=== PATIENT | male | born 1980 | race Caucasian/White ===

== ENCOUNTER 2017-02-22 10:34 | Emergency (ER) | payer OTHER ==
[2017-02-22 10:53] VITALS: TEMP 97.8
[2017-02-22] MEDS ORDERED: Emtricitabine-Tenofovir 200 mg-300 mg Tab PO STA (11:14)
[2017-02-22] MEDS ORDERED: cefTRIAXone (Rocephin) 250 mg Inj IM STA (11:15)
--- NOTE | 2017-02-22 11:20 | ED PDOC ---
Arrival/HPI - General Chief Complaint: Medical Clearance Time Seen by Provider: 02/22/17 10:51 Historian: Patient - History of Present Illness Narrative History of Present Illness (Text): 02/22/17 11:17 This 36 yo male presents to this ED requesting HIV, STD prophylaxis. Patient stated that he had sexual intercourse during the over night. He stated his condom broke and he has not idea about the status of his partner. Partner was a complete stranger to him. Patient wants to be treated prophylactic. Denies symptoms. Time/Duration: Prior to Arrival Context: Other (hotel) Past Medical History - Provider Review Nursing Documentation Reviewed: Yes - Infectious Disease Hx of Infectious Diseases: None - Psychiatric Hx Substance Use: No - Surgical History Hx Tonsillectomy: Yes Other/Comment: Nose surgery. Family/Social History - Physician Review Nursing Documentation Reviewed: Yes Family/Social History: Other (non-contributory) Smoking Status: Light Smoker < 10 Cigarettes Daily Hx Alcohol Use: Yes Frequency of alcohol use: Socially Hx Substance Use: No Allergies/Home Meds Allergies/Adverse Reactions: Allergies No Known Allergies Allergy (Verified 02/22/17 10:53) Review of Systems - Review of Systems Constitutional: Normal. absent: Fatigue, Weight Change, Fevers Eyes: Normal ENT: Normal Respiratory: Normal. absent: SOB, Cough Cardiovascular: Normal. absent: Chest Pain, Palpitations Gastrointestinal: Normal. absent: Abdominal Pain, Nausea, Vomiting Genitourinary Male: Normal. absent: Dysuria, Frequency, Hematuria Musculoskeletal: Normal Skin: Normal Neurological: Normal Endocrine: Normal Hemo/Lymphatic: Normal Psychiatric: Normal Physical Exam Vital Signs Temp Pulse Resp BP Pulse Ox 02/22/17 12:57 100 H 16 135/84 100 02/22/17 10:46 97.8 F 97 H 18 110/79 98 Temperature: Afebrile Blood Pressure: Normal Pulse: Regular Respiratory Rate: Normal Appearance: Positive for: Well-Appearing, Non-Toxic, Comfortable Pain Distress: None Mental Status: Positive for: Alert and Oriented X 3 - Systems Exam Head: Present: Atraumatic, Normocephalic Pupils: Present: PERRL Extroacular Muscles: Present: EOMI Conjunctiva: Present: Normal Mouth: Present: Moist Mucous Membranes Neck: Present: Normal Range of Motion Genitourinary Male: Present: Other (deffered) Upper Extremity: Present: Normal Inspection, Normal ROM Lower Extremity: Present: Normal Inspection, Normal ROM Neurological: Present: GCS=15, CN II-XII Intact, Speech Normal Skin: Present: Warm, Dry, Normal Color. No: Rashes Psychiatric: Present: Alert, Oriented x 3, Normal Insight, Normal Concentration Medical Decision Making ED Course and Treatment: 02/22/17 13:01 Re-evaluation. Patient feels better. Discussed results and plan with patient who expresses understanding. Counseling was provided regarding the diagnosis and prognosis. All questions answered and there is agreement with the plan to discharge home with instructions. Patient stable for discharge. Return if symptoms persist or worsen. Re-evaluation Time: 13:01 Reassessment Condition: Re-examined, Unchanged - Lab Interpretations Lab Results: 02/22/17 12:05 02/22/17 12:05 Lab Results 02/22/17 12:05: Sodium 143, Potassium 4.1, Chloride 103, Carbon Dioxide 29, Anion Gap 15, BUN 12, Creatinine 0.9, Est GFR ( Amer) > 60, Est GFR (Non- Af Amer) > 60, Random Glucose 100, Calcium 9.4, Total Bilirubin 0.9, AST 28, ALT 61 H, Alkaline Phosphatase 58, Total Protein 7.2, Albumin 4.7, Globulin 2.5 , Albumin/Globulin Ratio 1.9 H 02/22/17 12:05: WBC 11.7 H D, RBC 6.21 H, Hgb 17.2, Hct 49.2, MCV 79.2 L, MCH 27.7, MCHC 35.0, RDW 14.0, Plt Count 236, MPV 10.4, Gran % 66.1, Lymph % (Auto) 24.8, Villalba % (Auto) 5.6, Eos % (Auto) 3.2, Baso % (Auto) 0.3, Gran # 7.75 H, Lymph # 2.9, Villalba # 0.7 H, Eos # 0.4, Baso # 0.04 I have reviewed the lab results: Yes Interpretation: No clinic. lab abnormalty - Medication Orders Current Medication Orders: Discontinued Medications Azithromycin (Zithromax) 1,000 mg PO STAT STA PRN Reason: Protocol Stop: 02/22/17 11: Last Admin: 02/22/17 12:05 Dose: 1,000 mg Ceftriaxone Sodium (Rocephin) 250 mg IM STAT STA PRN Reason: Protocol Stop: 02/22/17 11:16 Last Admin: 02/22/17 12:05 Dose: 250 mg Emtricitabine/Tenofovir (Truvada 200 Mg-300 Mg) 1 tab PO STAT STA Stop: 02/22/17 11:15 Last Admin: 02/22/17 12:09 Dose: 1 tab Raltegravir (Isentress) 400 mg PO STAT STA Stop: 02/22/17 11:16 Last Admin: 02/22/17 12:10 Dose: 400 mg Disposition/Present on Arrival - Present on Arrival Any Indicators Present on Arrival: No History of DVT/PE: No History of Uncontrolled Diabetes: No Urinary Catheter: No History of Decub. Ulcer: No History Surgical Site Infection Following: None - Disposition Have Diagnosis and Disposition been Completed?: Yes Diagnosis: Possible exposure to STD Disposition: HOME/ ROUTINE Disposition Time: 13:02 Patient Plan: Discharge Condition: GOOD Discharge Instructions (ExitCare): Sexually Transmitted Diseases (ED) Additional Instructions: Call Dr. Nance to review blood test for STD. Take medication as instructed. Return to emergency if symptoms worsen. Prescriptions: Emtricitabine/Tenofovir (Tdf) [Truvada 200 mg-300 mg Tablet] 1 each PO DAILY # 27 tablet Ondansetron ODT [Zofran ODT] 4 mg PO Q4H PRN #15 odt PRN Reason: Nausea/Vomiting Raltegravir Potassium [Isentress] 400 mg PO BID #55 tab Referrals: PCP,NO [Primary Care Provider] - Follow up with primary Yunior Nance DO [Staff Provider] - Follow up with primary Forms: [employer] ([place])
[2017-02-22 12:25] LABS: ALB/GLOB RATIO 1.9 (1.1-1.8); ALKALINE PHOSPHATASE 58 U/L (38-126); ALT/SGPT 61 U/L (7-56); AST/SGOT 28 U/L (17-59); BILIRUBIN,TOTAL 0.9 mg/dL (0.2-1.3); BLOOD UREA NITROGEN 12 mg/dL (7-21); CALCIUM 9.4 mg/dL (8.4-10.5); CARBON DIOXIDE 29 mmol/L (21-33); CHLORIDE 103 mmol/L (98-107); GFR AFRICAN-AMERICAN > 60; GLUCOSE,RANDOM 100 mg/dL (70-110); POTASSIUM 4.1 mmol/L (3.6-5.0); SODIUM 143 mmol/L (132-148); TOTAL PROTEIN 7.2 g/dL (5.8-8.3)
[2017-02-22 12:46] LABS: BASO # 0.04 K/mm3 (0.0-2.0); BASO % 0.3 % (0.0-3.0); EOS # 0.4 (0.0-0.7); EOS % 3.2 % (1.5-5.0); GRAN # 7.75 (1.4-6.5); GRAN % 66.1 % (50.0-68.0); HEMATOCRIT 49.2 % (42.0-52.0); LYMPH # 2.9 (1.2-3.4); LYMPH % 24.8 % (22.0-35.0); MEAN CELL VOLUME 79.2 fl (80.0-105.0); MEAN CORPUSCULAR HEMOGLOBIN 27.7 pg (25.0-35.0); MEAN PLATELET VOLUME 10.4 fl (7.0-11.0); MONO # 0.7 (0.1-0.6); MONO % 5.6 % (1.0-6.0); WHITE BLOOD COUNT 11.7 10^3/ul (4.5-11.0)
[2017-02-22 12:58] VITALS: BP 135/84; PULSE 100; RESP 16; O2SAT 100
== END 2017-02-22 13:09 | disposition home or self-care (01) ==
LOC: ED 10:34
DX: Z04.8 Encounter for examination and observation for other specified reasons (principal)
CPT/HCPCS: 80053; 85025; 86592; 86703; 87491; 87591; 96372; 99283; J0696